=== PATIENT | female | born 1990 | race Caucasian/White ===

== ENCOUNTER 2018-02-10 18:19 | Emergency (ER) | payer OTHER ==
[2018-02-10 18:27] VITALS: BP 133/89
--- NOTE | 2018-02-10 18:45 | XRAY Report ---
EXAM: RIGHT WRIST RADIOGRAPHY EXAM DATE: 02/10/2018 06:40 PM. CLINICAL HISTORY: Fall. Hyperflexion injury. COMPARISON: None. TECHNIQUE: 4 views. FINDINGS: Bones: Normal. No fractures or bone lesions. Joints: Normal. No subluxations. Soft Tissues: Normal. No soft tissue swelling. IMPRESSION: Normal wrist radiography. [facility] Referring Provider Line: [phone] SITE ID: [id number]
--- NOTE | 2018-02-10 19:37 | ED Physician Documentation ---
PD HPI UPPER EXT INJURY - Stated complaint Stated Complaint: RT HAND PX - Chief complaint Chief Complaint: Ext Problem - History obtained from History obtained from: Patient - History of Present Illness Location: Right, Wrist Type of injury: Blunt / blow (playing soccer and a forceully kicking ball from close was coming at her. She put up hand to block it and the force pushed the wrist backward. Pain at dorsal wrist afterward.) Timing - onset: Today Timing - details: Abrupt onset, Still present Worsened by: Moving, Palpating Associated symptoms: Swelling. No: Weakness, Numbness Similar symptoms before: Has not had sx before Recently seen: Not recently seen Review of Systems Skin: denies: Abrasion (s), Laceration (s) Musculoskeletal: reports: Joint pain Neurologic: reports: Numbness (middle fingers with some numbness). denies: Focal weakness PD PAST MEDICAL HISTORY - Past Medical History Past Medical History: No Musculoskeletal: None - Past Surgical History Past Surgical History: Yes General: Other - Allergies Allergies/Adverse Reactions: Allergies Allergy/AdvReac Type Severity Reaction Status Date / Time No Known Drug Allergies Allergy Verified 02/10/18 18:27 - Social History Does the pt smoke?: No Smoking Status: Never smoker Does the pt drink ETOH?: Yes Does the pt have substance abuse?: No - Immunizations Immunizations are current?: Yes PD ED PE NORMAL - Vitals Vital signs reviewed: Yes - General General: Alert and oriented X 3, No acute distress, Well developed/nourished - Derm Derm: Normal color, Warm and dry, No rash - Extremities Extremities: Other (right wrist tender at dorsal aspect. Not tender in snuffbox. No gross deformity. Normal pulses and cap refill. ) - Neuro Neuro: No motor deficit, No sensory deficit Results - Vitals Vitals: Oxygen O2 Source Room air - Rads (name of study) right wrist Radiology: Prelim report reviewed, EMP read contemporaneously (no fractures) PD MEDICAL DECISION MAKING - ED course Complexity details: reviewed results, considered differential, d/w patient Departure - Departure Disposition: 01 Home, Self Care Clinical Impression: Right wrist sprain Qualifiers: Encounter type: initial encounter Qualified Code(s): S63.501A - Unspecified sprain of right wrist, initial encounter Condition: Stable Record reviewed to determine appropriate education?: Yes Instructions: ED Splint Care Velcro, ED Sprain Wrist Follow-Up: PAULA Lovett [Provider Group] Comments: Ibuprofen or naproxen twice daily for the next several days to week. Use a wrist splint when active to support the thumb and wrist. Recheck if not better over the next several days to week. He can do activity as tolerated with the fingers and simple use of the hand with the wrist brace. No heavy lifting or vigorous use of the hand for for 5 days. Forms: Activity restrictions Discharge Date/Time: 02/10/18 20:19
[2018-02-10] MEDS: IBUPROFEN 600 MG TABLET PO STA (19:57)
[2018-02-10] MEDS: ACETAMINOPHEN 325 MG TABLET PO STA (19:57)
== END 2018-02-10 20:19 | disposition home or self-care (01) ==
LOC: ED 18:19
DX: S63.501A Unspecified sprain of right wrist, initial encounter (principal); W21.02XA Struck by soccer ball, initial encounter; Y93.66 Activity, soccer; Y92.322 Soccer field as the place of occurrence of the external cause
CPT/HCPCS: 99282; 99283